=== PATIENT | male | born 1965 | race Caucasian/White ===

== ENCOUNTER 2017-11-28 16:30 | Observation (INO) | payer BC ==
[~2017-11-28] VITALS: Ht 185.4 cm; Wt 108.9 kg
[2017-12-03] VITALS (11 sets, daily range): BP systolic 122–181; BP diastolic 76–94; PULSE 58–79; TEMP 98–98.5
[2017-12-03] MEDS ORDERED: PRINIVIL5 MG PO (09:07)
[2017-12-03] MEDS ORDERED: NORVASC2.5 MG PO (09:07)
[2017-12-03 17:57] LABS: BASO % 0.2 % (0.0-2.0); GRAN # 9.4 (1.4-6.5); GRAN % 93.9 % (42.2-75.2); HEMATOCRIT 43.7 % (42.0-52.0); HEMOGLOBIN 15.4 g/dl (13.5-18.0); LYMPH # 0.4 (1.2-3.4); LYMPH % 4.1 % (20.0-51.0); MEAN CELL VOLUME 85 fl (80.0-100.0); MEAN CORPUSCULAR HEMOGLOBIN 30 pg (27.0-31.0); MEAN CORPUSCULAR HGB CONC 35 g/dl (33.0-37.0); MEAN PLATELET VOLUME 9.5 fl (7.4-10.4); MONO # 0.1 (0.1-0.6); MONO % 1.3 % (1.7-9.3); PLATELET COUNT 199 K/mm3 (130-400); RED BLOOD COUNT 5.17 M/mm3 (4.20-5.60); REDCELL DISTRIBUTION WIDTH-CV 12.5 % (11.5-14.5)
[2017-12-03 18:07] LABS: CALCIUM 8.7 mg/dL (8.4-10.2); CREATININE, serum 1.33 mg/dL (0.66-1.25); POTASSIUM 4.3 mmol/L (3.4-5.0)
[2017-12-04 02:54] VITALS: BP 162/78; PULSE 90; TEMP 98.5
[2017-12-04 06:00] VITALS: BP 142/71; PULSE 82; TEMP 98.8
[2017-12-04 06:36] LABS: BASO % 0.1 % (0.0-2.0); GRAN # 9.4 (1.4-6.5); HEMATOCRIT 41.5 % (42.0-52.0); HEMOGLOBIN 14.5 g/dl (13.5-18.0); LYMPH # 0.5 (1.2-3.4); LYMPH % 4.9 % (20.0-51.0); MEAN CELL VOLUME 85 fl (80.0-100.0); MEAN CORPUSCULAR HEMOGLOBIN 30 pg (27.0-31.0); MEAN CORPUSCULAR HGB CONC 35 g/dl (33.0-37.0); MEAN PLATELET VOLUME 9.7 fl (7.4-10.4); MONO # 0.6 (0.1-0.6); MONO % 5.6 % (1.7-9.3); PLATELET COUNT 213 K/mm3 (130-400); RED BLOOD COUNT 4.87 M/mm3 (4.20-5.60); REDCELL DISTRIBUTION WIDTH-CV 12.5 % (11.5-14.5)
[2017-12-04 07:07] LABS: CALCIUM 8.7 mg/dL (8.4-10.2); CREATININE, serum 1.82 mg/dL (0.66-1.25); POTASSIUM 4.2 mmol/L (3.4-5.0)
[2017-12-04 09:59] VITALS: BP 126/65; PULSE 63; TEMP 98
[2017-12-04 13:08] VITALS: BP 129/64; PULSE 62; TEMP 98.2
[2017-12-04 17:31] VITALS: BP 120/71; PULSE 61; TEMP 98.7
[2017-12-04 22:00] VITALS: BP 130/71; PULSE 66; TEMP 98
[2017-12-05 04:37] VITALS: BP 145/93; PULSE 58; TEMP 97.7
[2017-12-05 07:15] VITALS: BP 131/80; PULSE 58; TEMP 97.6
[2017-12-05 10:32] VITALS: BP 138/85; PULSE 65; TEMP 98.3
== END 2017-12-05 13:10 | disposition home or self-care (01) ==
LOC: INPTSU 12-03 07:52 → SURG 12-03 07:52
PROVIDERS: Urology
DX: C64.1 Malignant neoplasm of right kidney, except renal pelvis (principal); I10 Essential (primary) hypertension
CPT/HCPCS: A4314; G0378; J0690; J1100; J1650; J1885; J2250; J2270; J2405; J2704; J2710; J2765; J3010; J7120